=== PATIENT | male | born 1970 | race Two or more races ===

== ENCOUNTER 2017-07-18 10:01 | Emergency (ER) | payer SELFPAY ==
[2017-07-18 10:07] VITALS: BMI 30.2
--- NOTE | 2017-07-18 10:31 | DR.EXTPAIN ---
HPI - Time seen Time seen: 10:26 - PCP Primary Care Physician: nfd - Complaint/Symptoms Chief Complaint:: pt stated he has a rash with water blisters on his arms, armpits, and crotch. and it itches bad - Nurses notes reviewed Nurses Notes Review: Yes - Source History Provided: Patient - Mode of arrival Mode of Arrival: Ambulatory - Timing Onset of Chief Complaint: 07/18/17 PMH - PMH Past Medical History: No Past Surgical History: Yes Surgical History: Ortho Surgery - Family History History of Family Medical Conditions: No - Social History Does patient currently use any type of tobacco product: No Have you used tobacco products in the last 12 months: No Type of Tobacco Use: None Does any household member use tobacco: Yes Alcohol Use: Rarely Do you use any recreational Drugs:: No Lives With: Family Lives Where: Home - infectious screening In the last 2 months have you had wt loss of >10#?: NO Have you had fever, night sweats or hemotysis?: No Have you traveled outside the country in the last 6 months?: No Isolation: Standard ROS - Review of Systems Constitutional: No Symptoms Reported Eyes: No Symptoms Reported ENTM: No Symptoms Reported Respiratoy: No Symptoms Reported Cardiovascular: No Symptoms Reported Gastrointestinal/Abdominal: No Symptoms Reported Genitourinary: No Symptoms Reported Neurological: No Symptoms Reported Musculoskeletal: No Symptoms Reported Integumentary: Rash (in antecubital and popliteal fossa b/l, both inguinal canals and around armpits.), Itching (around these referenced rash sites.) Endocrine: No Symptoms Reported Psychiatric: No Symptoms Reported All Other Systems: Reviewed and Negative PE - Vital Signs Vitals: Temperature 98.7 F - General Limitations: No Limitations General Appearance: Alert, In No Apparent Distress - Head Head Exam: Normal Inspection - Eyes Eye exam: Normal Appearance - ENT ENT Exam: Normal Exam - Respiratory Respiratory Exam: Normal Lung Sounds Bilat - Cardiovascular Cardiovascular Exam: Regular Rate, Normal Rhythm, +S1, +S2 - Abdominal Exam Abdominal Exam: Normal Inspection, Normal Bowel Sounds, Soft - Extremities Extremities Exam: Normal Inspection - Back Back Exam: Normal Inspection - Neurological Neurological Exam: Alert - Psychiatric Psychiatric Exam: Normal Affect, Normal Mood - Skin Skin Exam: Rash (large rough surfaced rash in bilateral antecubital and popliteal fossa, inguinal areas b/l and along the posterior aspects of both armpits. These have a slight erythematous base. ) - Diagnosis Discharge Problem: Eczema intertrigo - Discharge Plan Disposition: 01 HOME, SELF-CARE Condition: Stable - Follow ups/Referrals Follow ups/Referrals: [facility],None [Primary Care Provider] - 3 days - Instructions Instructions: Intertrigo, [id number]
[2017-07-18] MEDS ORDERED: PREDNISONE TAB 20 MG PO ONE ×2 (10:37→10:43)
== END 2017-07-18 10:42 | disposition home or self-care (01) ==
LOC: ER 10:18
DX: L30.4 Erythema intertrigo (principal)
CPT/HCPCS: 99282; J7506